=== PATIENT | female | born 1945 | race Caucasian/White ===

== ENCOUNTER 2017-01-12 18:39 | Emergency (ER) | payer MEDICARE ==
[2017-01-12 18:48] VITALS: TEMP 98.2
[2017-01-12] MEDS ORDERED: DIPH,PERTUS(ACELL)TETVAC-LF 0.5 ML VIAL IM ONE (19:21)
[2017-01-12] MEDS ORDERED: MORPHINE SULFATE 4 MG/ML SYRINGE IVP STA (19:47)
[2017-01-12 19:57] LABS: Basophils # (A) 0.1 k/uL (0-0.2); Basophils % (A) 1 %; CHCM 32.1; Eosinophils # (A) 0.1 k/uL (0-0.7); Eosinophils % (A) 1 %; HCT 42.1 % (34.0-46.0); HDW 2.57; HGB 13.9 gm/dL (11.4-16.0); Luc # (Auto) 0.26; Luc % (Auto) 3; Lymphocytes # (A) 1.7 k/uL (1.0-4.8); Lymphocytes % (A) 18 %; MCH 28.9 pg (25.0-35.0); MCV 87.5 fL (80.0-100.0); Mean Platelet Volume 6.6; Monocytes # (A) 0.7 k/uL (0-1.0); Monocytes % (A) 7 %; Neutrophils # (A) 6.7 k/uL (1.3-7.7); Neutrophils % (A) 71 %; RBC 4.81 m/uL (3.80-5.40); RDW 14.7 % (11.5-15.5); WBC 9.4 k/uL (3.8-10.6); WBC (Perox) 9.62
[2017-01-12 20:05] LABS: ALT 30 U/L (9-52); AST 31 U/L (14-36); Alcohol <10 mg/dL; Alkaline Phosphatase 121 U/L (38-126); Anion Gap 11 mmol/L; Blood Urea Nitrogen 11 mg/dL (7-17); Calcium 9.4 mg/dL (8.4-10.2); Carbon Dioxide 23 mmol/L (22-30); Chloride 107 mmol/L (98-107); Glucose 98 mg/dL (74-99); Non-African American GFR(MDRD) >60 (>60 ml/min/1.73 sqM); Potassium 4.3 mmol/L (3.5-5.1); Sodium 141 mmol/L (137-145); Total Bilirubin 0.4 mg/dL (0.2-1.3); Total Protein 8.1 g/dL (6.3-8.2)
--- NOTE | 2017-01-12 20:08 | XR ---
EXAMINATION TYPE: XR wrist limited LT DATE OF EXAM: 01/12/2017 COMPARISON: NONE HISTORY: Fall. Pain TECHNIQUE: 2 views FINDINGS: There is an impacted comminuted transverse fracture of the distal radius. There is 1 cm pos terior displacement of the major distal fragments. There is no dislocation. Distal ulna is intact. IMPRESSION: Comminuted impacted displaced transverse fracture distal radius. 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
--- NOTE | 2017-01-12 20:10 | XR ---
EXAMINATION TYPE: XR foot complete LT DATE OF EXAM: 01/12/2017 COMPARISON: NONE HISTORY: Pain TECHNIQUE: 3 views FINDINGS: There is old osteotomy of the first metatarsal head. There is narrowing and spurring at fir st MP joint. . There are moderate plantar and Achilles calcaneal spurs. There is suggestion of a nond isplaced transverse fractures of the head of the second and third proximal phalanges. IMPRESSION: There are probably fractures of the second and third toes as above.
[2017-01-12 20:12] LABS: Prothrombin Time 10.6 sec (9.0-12.0)
--- NOTE | 2017-01-12 20:52 | CT ---
EXAMINATION TYPE: CT brain wo con DATE OF EXAM: 01/12/2017 COMPARISON: NONE HISTORY: LACERATION TO LEFT SIKH AREA AFTER FALL INJURY TODAY. CT DLP: 954.8 mGycm Automated exposure control for dose reduction was used. FINDINGS: There is moderate patchy hypodensity in the periventricular white matter. There is no mass effect nor midline shift. There is a 3 x 4 cm wedge-shaped area of hypodensity in the right posterior frontal l obe. Calvarium is intact. There is no sign of intracranial hemorrhage. There is soft tissue swelling lateral to the left orbit. I see no sign of orbital fracture. IMPRESSION: SOFT TISSUE SWELLING LATERAL TO THE LEFT ORBIT. CEREBRAL ATROPHY AND CHRONIC SMALL VESSEL ISCHEMIA. O LD RIGHT POSTERIOR FRONTAL LOBE CORTICAL INFARCT. NO ACUTE INTRACRANIAL ABNORMALITY.
[2017-01-12 21:28] VITALS: RESP 18
[2017-01-12] MEDS ORDERED: MIDAZOLAM (PF) 1 MG/ML 5 ML VIAL IV STA (21:38)
[2017-01-12] MEDS ORDERED: MORPHINE SULFATE 10 MG/ML SYRINGE IVP STA (21:38)
[2017-01-12] MEDS ORDERED: TOPICAL SKIN ADHESIVE 1 EACH AMP TOPICAL ONE (21:43)
--- NOTE | 2017-01-12 22:35 | XR ---
EXAM: XR Left Wrist, 2 Views CLINICAL HISTORY: Reason: post reduction TECHNIQUE: Frontal and lateral views of the left wrist. COMPARISON: Wrist radiographs 01/12/2017 at 1947 hrs. FINDINGS: Bones/joints: Interval placement of fiberglass cast which obscures bony detail. Again demonstrated is comminuted distal radial fracture with mild radial displacement and mild dorsal angulation of the major distal fracture fragment. Interval improvement in bony alignment as compared to earlier examination of the same date. Degenerative changes about the first carpal-metacarpal joint. IMPRESSION: Status post placement of fiberglass cast. Distal radial fracture as described in body of report.
--- NOTE | 2017-01-12 22:57 | ED ---
General Adult HPI - General Chief complaint: Head Injury Stated complaint: slip and fall, left foot/hand injury, head injury Time Seen by Provider: 01/12/17 18:59 Source: patient, family, RN notes reviewed Mode of arrival: wheelchair Limitations: no limitations - History of Present Illness Initial comments: 72 -year-old female presenting status post fall. Patient was stepping over a garden pond and tripped falling and hitting her left eye, left wrist and left foot. She did have head, but denies LOC. She is complaining of pain in her left second and third toe as well as left breast. She has no significant past medical history, she is not currently on any medications. No blood thinners. Denies any chest pain or shortness of breath prior to the fall. - Related Data Home Medications Medication Instructions Recorded Confirmed Aspirin 325 mg PO DAILY 10/17/15 01/12/17 Cyanocobalamin (Vitamin B-12) 5,000 mcg PO DAILY 01/12/17 01/12/17 [Vitamin B12] Previous Rx's Medication Instructions Recorded HYDROcodone/APAP 5-325MG [[place] 1 tab PO Q6HR PRN #12 tab 01/12/17 5-325] Ibuprofen [Motrin] 600 mg PO Q8HR PRN #24 tab 01/12/17 Allergies Allergy/AdvReac Type Severity Reaction Status Date / Time No Known Allergies Allergy Verified 01/12/17 19:19 Review of Systems ROS Statement: Those systems with pertinent positive or pertinent negative responses have been documented in the HPI. ROS Other: All systems not noted in ROS Statement are negative. Past Medical History Past Medical History: Hypertension Additional Past Medical History / Comment(s): uterine prolapse with pain History of Any Multi-Drug Resistant Organisms: None Reported Past Surgical History: Hernia Repair, Orthopedic Surgery Additional Past Surgical History / Comment(s): heel spur,breast bx,breast reduction,lt inguinal hernia Past Anesthesia/Blood Transfusion Reactions: No Reported Reaction Additional Past Anesthesia/Blood Transfusion Reaction / Comment(s): unknown family hx Past Psychological History: No Psychological Hx Reported Smoking Status: Current every day smoker Past Alcohol Use History: Occasional Past Drug Use History: None Reported - Past Family History Mother Family Medical History: Cancer Additional Family Medical History / Comment(s): lung Father Family Medical History: Myocardial Infarction ([place]) General Exam Limitations: no limitations General appearance: alert, in no apparent distress Head exam: Present: normocephalic, other (Laceration to the lateral orbit just beneath the left eyebrow. No bony tenderness, extraocular motions are intact) Eye exam: Present: normal appearance, PERRL, EOMI ENT exam: Present: normal exam, mucous membranes moist Neck exam: Present: normal inspection, full ROM. Absent: tenderness Respiratory exam: Present: normal lung sounds bilaterally. Absent: respiratory distress Cardiovascular Exam: Present: regular rate, normal rhythm GI/Abdominal exam: Present: soft. Absent: distended, tenderness, guarding Extremities exam: Present: tenderness (Tenderness to the left second and third toes with overlying ecchymosis), normal capillary refill, other (Deformity left wrist, palpable radial pulse, cap refill less than 2 seconds.). Absent: pedal edema Neurological exam: Present: alert, oriented X3, CN II-XII intact. Absent: motor sensory deficit Psychiatric exam: Present: normal affect, normal mood Skin exam: Present: warm, dry Course Vital Signs 01/12/17 01/12/17 01/12/17 18:45 19:53 21:56 Temperature 98.2 F Pulse Rate 86 88 78 Respiratory 17 18 18 Rate Blood Pressure 235/102 182/89 190/87 O2 Sat by Pulse 97 95 99 Oximetry 01/12/17 01/12/17 21:57 22:02 Temperature Pulse Rate 80 84 Respiratory 18 18 Rate Blood Pressure 182/86 174/80 O2 Sat by Pulse 96 98 Oximetry EKG Findings - EKG Comments: EKG Findings:: EKG shows normal sinus rhythm, ventricular rate 76, VA interval 170, QS duration 70, QTC 45, no ST segment elevation or depression Procedures - Laceration Laceration #1 Consent Obtained: verbal consent Time Out Performed: Yes Indication: laceration Site: face Description: linear, clean Depth: simple, single layer Pre-repair: deep structures intact Size of Sutures: other (Combivent) Patient Tolerated Procedure: well - Orthopedic Fracture Reduction Fracture #1 Consent Obtained: verbal consent Time Out Performed: Yes Side: left Fracture Reduction Location: radius Analgesia: procedural sedation Technique: direct manipulation Post Reduction X-rays Demonstrate: acceptable reduction Post-Reduction Neuro Exam: intact Post-Reduction Vascular Exam: intact Splint Applied: Yes Patient Tolerated Procedure: well Medical Decision Making - Medical Decision Making 72-year-old female presents status post fall. No LOC. Head CT is negative for acute renal hemorrhage or acute findings. Laceration to the left lateral orbit is repaired with Dermabond. Patient does have fracture to the left second and third digit. She is given a postoperative shoe. Fracture to the left distal radius. Patient receives conscious sedation and fracture was reduced and she is placed in a splint. Patient tolerated the procedure well. She will follow- up with orthopedic surgery in the next several days. Diagnosis: Closed head injury, facial laceration, left distal radius fracture, left second and third fractured toe - Lab Data Result diagrams: 01/12/17 19:40 01/12/17 19:40 Lab Results 01/12/17 01/12/17 01/12/17 Range/Units 19:40 19:40 19:40 WBC 9.4 (3.8-10.6) k/uL RBC 4.81 (3.80-5.40) m/uL Hgb 13.9 (11.4-16.0) gm/dL Hct 42.1 (34.0-46.0) % MCV 87.5 (80.0-100.0) fL MCH 28.9 (25.0-35.0) pg MCHC 33.0 (31.0-37.0) g/dL RDW 14.7 (11.5-15.5) % Plt Count 268 (150-450) k/uL Neutrophils % 71 % Lymphocytes % 18 % Monocytes % 7 % Eosinophils % 1 % Basophils % 1 % Neutrophils # 6.7 (1.3-7.7) k/uL Lymphocytes # 1.7 (1.0-4.8) k/uL Monocytes # 0.7 (0-1.0) k/uL Eosinophils # 0.1 (0-0.7) k/uL Basophils # 0.1 (0-0.2) k/uL PT (9.0-12.0) sec INR (<1.2) APTT (22.0-30.0) sec Sodium 141 (137-145) mmol/L Potassium 4.3 (3.5-5.1) mmol/L Chloride 107 (98-107) mmol/L Carbon Dioxide 23 (22-30) mmol/L Anion Gap 11 mmol/L BUN 11 (7-17) mg/dL Creatinine 0.66 (0.52-1.04) mg/dL Est GFR (MDRD) Af Amer >60 (>60 ml/min/1.73 sqM) Est GFR (MDRD) Non-Af >60 (>60 ml/min/1.73 sqM) Glucose 98 (74-99) mg/dL Calcium 9.4 (8.4-10.2) mg/dL Total Bilirubin 0.4 (0.2-1.3) mg/dL AST 31 (14-36) U/L ALT 30 (9-52) U/L Alkaline Phosphatase 121 (38-126) U/L Total Protein 8.1 (6.3-8.2) g/dL Albumin 4.4 (3.5-5.0) g/dL Serum Alcohol <10 mg/dL Blood Type O Positive Blood Type Recheck No Antibody Screen NEGATIVE Spec Expiration Date 01/15/2017 - 233901/12/17 Range/Units 19:40 WBC (3.8-10.6) k/uL RBC (3.80-5.40) m/uL Hgb (11.4-16.0) gm/dL Hct (34.0-46.0) % MCV (80.0-100.0) fL MCH (25.0-35.0) pg MCHC (31.0-37.0) g/dL RDW (11.5-15.5) % Plt Count (150-450) k/uL Neutrophils % % Lymphocytes % % Monocytes % % Eosinophils % % Basophils % % Neutrophils # (1.3-7.7) k/uL Lymphocytes # (1.0-4.8) k/uL Monocytes # (0-1.0) k/uL Eosinophils # (0-0.7) k/uL Basophils # (0-0.2) k/uL PT 10.6 (9.0-12.0) sec INR 1.0 (<1.2) APTT 23.0 (22.0-30.0) sec Sodium (137-145) mmol/L Potassium (3.5-5.1) mmol/L Chloride (98-107) mmol/L Carbon Dioxide (22-30) mmol/L Anion Gap mmol/L BUN (7-17) mg/dL Creatinine (0.52-1.04) mg/dL Est GFR (MDRD) Af Amer (>60 ml/min/1.73 sqM) Est GFR (MDRD) Non-Af (>60 ml/min/1.73 sqM) Glucose (74-99) mg/dL Calcium (8.4-10.2) mg/dL Total Bilirubin (0.2-1.3) mg/dL AST (14-36) U/L ALT (9-52) U/L Alkaline Phosphatase (38-126) U/L Total Protein (6.3-8.2) g/dL Albumin (3.5-5.0) g/dL Serum Alcohol mg/dL Blood Type Blood Type Recheck Antibody Screen Spec Expiration Date Critical Care Time Critical Care Time: Yes Total Critical Care Time: 35 Disposition Clinical Impression: Closed head injury, Radius fracture Disposition: HOME SELF-CARE Condition: Good Instructions: Concussion (ED), Wrist Fracture in Adults (ED) Prescriptions: HYDROcodone/APAP 5-325MG [[place] 5-325] 1 tab PO Q6HR PRN #12 tab PRN Reason: Pain Ibuprofen [Motrin] 600 mg PO Q8HR PRN #24 tab PRN Reason: Pain Referrals: Tasneem Ann DO [Primary Care Provider] - 1-2 days Henrry Hess MD [STAFF PHYSICIAN] - 1-2 days
[2017-01-12] MEDS ORDERED: IBUPROFEN 600 MG STARTER PACK 4 TAB BTL PO STA (23:19)
[2017-01-12 23:32] VITALS: BP 150/74; PULSE 88
--- NOTE | 2017-01-19 05:53 | CDI ---
Dear Preston Freeman MD: Please do addendum start and stop time of conscious sedation. Thank you, Susan Sands, [employer]k Spreader. If you have any questions, please contact Civil Engineer Helper at [phone]. mtdD
== END 2017-01-12 23:30 | disposition home or self-care (01) ==
LOC: EC 18:39
DX: S52.502A Unspecified fracture of the lower end of left radius, initial encounter for closed fracture (principal); S01.112A Laceration without foreign body of left eyelid and periocular area, initial encounter; F17.200 Nicotine dependence, unspecified, uncomplicated; Z23 Encounter for immunization; Z79.82 Long term (current) use of aspirin; Z98.890 Other specified postprocedural states; Z79.899 Other long term (current) drug therapy; W01.198A Fall on same level from slipping, tripping and stumbling with subsequent striking against other object, initial encounter; Y92.89 Other specified places as the place of occurrence of the external cause
CPT/HCPCS: 25605 ×2; 12011 ×2; 90471 ×2; 96374 ×2; 99285 ×2; 99152 ×2; 99153 ×2; 36415; 93005; 86900; 86901; 80053; 85025; 85610; 85730; 86850; 80320; 73100; 73630; 70450; 90715; J2270 ×2; J2250

== ENCOUNTER → 2017-01-16 | Outpatient (CLI) | payer MEDICARE ==
--- NOTE | 2017-01-16 17:32 | XR ---
EXAMINATION TYPE: XR chest 2V DATE OF EXAM: 01/16/2017 COMPARISON: 10/23/2015 HISTORY: Cough TECHNIQUE: Frontal and lateral views of the chest are obtained. FINDINGS: There is no heart failure nor confluent pneumonic infiltrate. There is slight coarsening o f lung markings at the lung bases. There is no pleural effusion. There are no hilar masses. Bony thor ax is intact. IMPRESSION: Mild pulmonary fibrotic changes. No acute lung disease. No change.
== END | disposition home or self-care (01) ==
LOC: RADXRMAIN 16:32
PROVIDERS: ATTEND Orthopaedic Surgery
DX: Z01.812 Encounter for preprocedural laboratory examination (principal); E84.9 Cystic fibrosis, unspecified; R06.00 Dyspnea, unspecified
CPT/HCPCS: 71020

== ENCOUNTER 2017-01-20 12:39 | Day surgery (SDC) | payer MEDICARE ==
--- NOTE | 2017-01-19 15:21 | HP ---
CHIEF COMPLAINT: Left wrist pain. HISTORY OF PRESENT ILLNESS: The patient is a 72-year-old retired female who presents with left wrist pain after a fall on 01/12/2017. She fell in her back yard of her own home, landing on her left side. She had no loss of consciousness. She initially was seen in the emergency room and underwent provisional closed reduction of a left distal radius fracture. She has been in a splint since. She denies previous injury. PAST MEDICAL HISTORY: Negative. CURRENT MEDICATIONS: 1. Ibuprofen. 2. [place]. PAST SURGICAL HISTORY: Significant for hysterectomy. FAMILY HISTORY: Significant for cancer and heart disease. SOCIAL HISTORY: Significant for 1 pack per day tobacco use. A 16-point review of systems is otherwise reviewed and is noncontributory. On examination, the patient is approximately 5 foot 6 , 159 pounds of mesomorphic habitus. HEENT exam is nonfocal. Neck is supple. She is nontender about the left shoulder and elbow. On examination of her left wrist she has large swelling. She has mild ecchymosis volarly. She is tender over the distal radius. She has moderate digital stiffness, light touch is grossly intact through the left digits. X-rays to include multiple views of the left wrist brought in with the patient show an intra-articular distal radius fracture with significant angulation and displacement. IMPRESSION: Displaced left intra-articular distal radius fracture. RECOMMENDATIONS: I talked to the patient length regarding her treatment options. At this point, I would recommend proceeding with surgery. We will plan to proceed with open reduction and internal fixation of her left distal radius fracture. We will likely keep the patient for a 23-hour hold postoperative. Risks and benefits are discussed at length in layman's terms. TRES
[~2017-01-20 12:39] MED LIST: DEXAMETHASONE SOD PHOSPHATE 10 MG/ML 1 ML VIAL IV ONE; FAMOTIDINE 20 MG/2 ML VIAL IV PRN; HYDROmorphone 1 MG/ML 1 ML SYRINGE IVP PRN; LIDOCAINE 1% 20 ML VIAL (10MG/ML) FOR IV START INTRADERMA PRN; ONDANSETRON 4 MG/2 ML VIAL IVP PRN; ceFAZolin 1,000 MG in DEXTROSE/WATER 1 50ML.BAG IV ONE
[2017-01-20] MEDS: LACTATED RINGERS 1,000 ML IV SCH (13:52)
[2017-01-20] MEDS ORDERED: SUCCINYLCHOLINE CHLORIDE 100 MG/5 ML SYR IV ONE (15:00)
[2017-01-20] MEDS ORDERED: fentaNYL (PF) 50 MCG/ML 2 ML AMP ONE (15:00)
[2017-01-20] MEDS ORDERED: ePHEDrine 50 MG/ML 1 ML AMP ONE (15:00)
[2017-01-20] MEDS ORDERED: PROPOFOL 10 MG/ML 20 ML VIAL IV ONE (15:00)
[2017-01-20] MEDS ORDERED: MIDAZOLAM 2 MG/2 ML VIAL ONE (15:00)
[2017-01-20] MEDS ORDERED: LIDOCAINE 1% INJ 10MG/ML (20 ML MDV) ONE (15:00)
[2017-01-20] MEDS ORDERED: ceFAZolin 1,000 MG in SODIUM CHLORIDE 0.9% 1,000 ML IRRIGATION ONE (15:29)
[2017-01-20] MEDS ORDERED: LACTATED RINGERS 1,000 ML IV ONE (16:28)
[2017-01-20] MEDS ORDERED: HYDROcodone/APAP 5-325MG 1 EACH TAB PO PRN ×2 (16:47)
[2017-01-20] MEDS ORDERED: HYDROmorphone 1 MG/ML 1 ML SYRINGE IVP PRN (16:47)
--- NOTE | 2017-01-20 16:50 | P.OP ---
Date of Procedure: 01/20/17 Preoperative Diagnosis: Displaced left intra-articular distal radius fracture Postoperative Diagnosis: Same Procedure(s) Performed: Open reduction and internal fixation left intra-articular distal radius fracture Implants: Rajinder 3-hole standard with volar distal radius plate Anesthesia: HUMA Surgeon: Henrry Hess Bank Reconciliator #1: Evans Rene Estimated Blood Loss (ml): 5 Pathology: none sent Condition: stable Disposition: PACU Indications for Procedure: The patient's a 72-year-old female who presents after falling injuring her left wrist recently. Upon evaluation she was noted have a significantly displaced and angulated intra-articular left distal radius fracture. A discussion of the risks and benefits of operative intervention was made with patient. She opted to proceed. Operative options were discussed. We will plan to proceed with open reduction and internal fixation. Specific risks of this procedure to include infection, neurovascular injury, development of blood clots, development of nonunion, development of malunion, and possible need for subsequent procedures was discussed. Informed consent was obtained. Operative Findings: As below Description of Procedure: The patient was brought to the operating room, and after induction of general anesthesia the left upper extremity was prepped and draped in normal fashion. The tourniquet was inflated to 250 mmHg. A 5 cm incision was then made centered over the flexor carpi radialis extending to the volar distal wrist crease. Skin was incised sharply. Subcu tissues were divided bluntly. Electrocautery was used for hemostasis. The flexor carpi radialis sheath was opened. The tendon was gently retracted ulnarly and the radial artery radially. The underlying fascia was then opened. The contents of the carpal canal were bluntly dissected ulnarly. The pronator quadratus was elevated off the radial styloid in the fracture site cleaned of clot and debris. It was then provisionally reduced with longitudinal traction and manipulation. A volar 3-hole plate of standard with was then attached to the distal radial shaft with a K wire. Position was verified with fluoroscopy on the PA, and lateral views. A 2.4 mm cortical screw of the appropriate length was placed in the sliding hole proximally. With the fracture held reduced, the proximal and distal rows were filled with smooth pegs the appropriate length. Again this was done with the aid of fluoroscopy. The remaining cortical screws were placed proximally. Final fluoroscopic views to include AP lateral and PA views showed adequate reduction of fracture in the articular surface as well as placement of the implant. The wound was irrigated with normal saline. The subcutaneous tissues reapproximated interrupted 3-0 Vicryl sutures. The skin was reapproximated with subcuticular 4-0 Prolene suture. Steri-Strips were applied. A sterile dressing was applied in addition to a volar splint. The tourniquet was deflated with approximately 60 minutes total tourniquet time. The patient was awoken from general anesthesia and transferred to recovery room in good condition. Blood loss was estimated 5 mL. No complications were incurred. Sponge and needle counts were correct at the end the case.
--- NOTE | 2017-01-20 16:51 | FL ---
Fluoroscopy History: ORIF LT DISTAL RADIUS FRACUTURE. 1 MIN 9 SECS FL TIME. ORIF LT DISTAL RADIUS FRACUTURE. 2 IMAGES SCANNED
[2017-01-20] MEDS ORDERED: LABETALOL 5 MG/ML VIAL MDV IVP ONE ×2 (16:59→17:15)
[2017-01-20] MEDS ORDERED: HYDROmorphone 1 MG/ML 1 ML SYRINGE IVP ONE ×7 (17:02→17:29)
[2017-01-20] MEDS ORDERED: MIDAZOLAM 2 MG/2 ML VIAL IVP ONE (17:28)
[2017-01-20 18:06] VITALS: BMI 25.4
[2017-01-20] MEDS: HYDROmorphone 1 MG/ML 1 ML SYRINGE IVP PRN (21:00)
[2017-01-20] MEDS: ceFAZolin 2 GM in SODIUM CHLORIDE 0.9% 100 ML IVPB SCH (23:58)
[2017-01-21] MEDS: HYDROmorphone 1 MG/ML 1 ML SYRINGE IVP PRN ×2 (00:13→03:43)
[2017-01-21] MEDS: LACTATED RINGERS 1,000 ML IV SCH (06:08)
[2017-01-21] MEDS: ceFAZolin 2 GM in SODIUM CHLORIDE 0.9% 100 ML IVPB SCH (07:58)
[2017-01-21 08:11] VITALS: BP 150/72; PULSE 92; RESP 18; TEMP 98.1
--- NOTE | 2017-01-21 09:35 | P.PN ---
Subjective Principal diagnosis: Status post ORIF left distal radius fracture Patient is seen today resting in her hospital bed, she appears comfortable. Her pain is well-controlled. She denies any chest pain, shortness of breath, fever chills. Objective - Vital Signs Vital signs: Vital Signs Temp 98.1 F 01/21/17 08:00 Pulse 92 01/21/17 08:00 Resp 18 01/21/17 08:00 BP 150/72 01/21/17 08:00 Pulse Ox 96 01/21/17 08:00 Intake & Output 01/20/17 01/21/17 01/21/17 18:59 06:59 18:59 Intake Total 1151 420 Output Total 5 Balance 1146 420 Weight 71.668 kg Intake: IV 1151 Oral 420 Output: Estimated Blood Loss 5 Other: Voiding Method Toilet # Voids 1 2 - Exam Left upper extremity: Splint is in good position and condition. Minimal swelling and bruising noted in the fingers. She is able to wiggle all the fingers appropriately. Her sensation of light touch both proximal and distal to the splint are intact. Cap refills less than 3 seconds. Assessment and Plan Plan: Assessment: 1. Postop day 1 status post ORIF left distal radius fracture Plan: Patient is doing very well, We Will Discharge Home Today [place] 5 Mg/325 Mg As Needed for Discomfort Discussed Proper Cast Instructions, Including Both Showering and Icing and Elevating Techniques Patient Advised to Follow-Up at [facility] in 2 Weeks Time with Patient: Less than 30
--- NOTE | 2017-01-21 09:38 | P.DS ---
Providers Date of admission: 01/20/2017 Expected date of discharge: 01/21/17 Attending physician: Henrry Hess Primary care physician: Tasneem Ann Hospital Course: Date of admission: 01/20/2017 Date of discharge: 01/21/2017 Admission diagnosis: Status post ORIF left distal radius fracture Discharge diagnosis: Same Attending physician: Dr. Hess Surgical procedures: Open reduction internal fixation left distal radius fracture Brief history: Patient is a 72-year-old female who was initially evaluated in the outpatient setting for a displaced and angulated left distal radius intra- articular fracture. It was determined that she would need surgical intervention for this problem. She was scheduled for surgery on 01/20/2017. Hospital course: Details of patient's surgery can be found in operative report. Patient tolerated the procedure well and was subsequently transported to orthopedic floor. Patient's orthopeidc and medical care was provided daily. Patient was noted to have a relatively uneventful postoperative course. Patient reported satisfactory pain control with oral pain medications by postoperative day 0. Patient showed satisfactory progress with physical therapy. Patient moved steadily through the program and had no difficulty meeting the goals by postoperative day 1. Given patient's otherwise satisfactory course and having met physical therapy goals, plan is to discharge patient home on postoperative day 1. Discharge condition/disposition: Patient will be discharged home in stable condition. Discharge medications: Instructions are given on resumption of patient's normal daily medications per primary care recommendation, in addition patient will be prescribed [place] 5 mg/325 mg. Discharge instructions: 1. Wound care and infection precautions, keep incision dry and covered while showering, no lotions, creams, moisturizers. No soaking, tubs, pools, hottubs. Do not scrub over the incision. 2. Avoid strenuous activity left upper extremity 3. Ice and elevate when necessary. Do not exceed 20 minutes per hour with ice pack. 4. Pain medication has potential to cause constipation. Increase oral fluid and fiber intake. Contact primary care provider if you have not had a bowel movement within 48 hours after discharge 5. Follow up in office at 2 weeks postop with Brandon Rene PA-C 6. Contact [facility] with any questions, . Procedures: Open reduction internal fixation left distal radius fracture Patient Condition at Discharge: Good Plan - Discharge Summary New Discharge Prescriptions: New Hydrocodone/Acetaminophen [[place] 5-325] 1 each PO Q6HR PRN #30 tab PRN Reason: Pain No Action Aspirin 325 mg PO DAILY Cyanocobalamin (Vitamin B-12) [Vitamin B12] 5,000 mcg PO DAILY Ibuprofen [Motrin] 600 mg PO Q8HR PRN #24 tab PRN Reason: Pain Acetaminophen [Tylenol Extra Strength] 500 mg PO Q6H PRN PRN Reason: Pain Discharge Medication List Aspirin 325 mg PO DAILY 10/17/15 [History] Cyanocobalamin (Vitamin B-12) [Vitamin B12] 5,000 mcg PO DAILY 01/12/17 [History ] Ibuprofen [Motrin] 600 mg PO Q8HR PRN #24 tab 01/12/17 [Rx] Acetaminophen [Tylenol Extra Strength] 500 mg PO Q6H PRN 01/19/17 [History] Hydrocodone/Acetaminophen [[place] 5-325] 1 each PO Q6HR PRN #30 tab 01/21/17 [Rx] Follow up Appointment(s)/Referral(s): Evans Rene PAC [PHYSICIAN FISHING ROD MECHANIC] - 2 Weeks Activity/Diet/Wound Care/Special Instructions: Orthopedic discharge instructions: 1. Keep cast clean and dry, keep covered while showering 2. Ice and elevate The 3. Avoid strenuous activity 4. Follow-up at [facility] in 2 weeks Discharge Disposition: HOME SELF-CARE
== END 2017-01-21 11:53 | disposition home or self-care (01) ==
LOC: OR 12:39 → 3OBS 14:39 → OR 01-21 11:53
PROVIDERS: ATTEND Orthopaedic Surgery
DX: S52.572A Other intraarticular fracture of lower end of left radius, initial encounter for closed fracture (principal); W19.XXXA Unspecified fall, initial encounter; Y92.007 Garden or yard of unspecified non-institutional (private) residence as the place of occurrence of the external cause; I10 Essential (primary) hypertension; Z72.0 Tobacco use; Z79.82 Long term (current) use of aspirin; Z79.1 Long term (current) use of non-steroidal anti-inflammatories (NSAID)
CPT/HCPCS: 73100; 25608; C1713; J2250; J1100; J0690 ×4; J2405; J2001; J3010; J1170 ×2; J0330; J2704

== ENCOUNTER 2017-11-06 17:40 | Emergency (ER) | payer MEDICARE ==
--- NOTE | 2017-11-06 18:18 | ED ---
Altered Mental Status HPI - General Chief Complaint: Altered Mental Status Stated Complaint: Memory loss Time Seen by Provider: 11/06/17 18:13 Source: patient, family Mode of arrival: wheelchair Limitations: altered mental status - History of Present Illness Initial Comments: Patient presents with altered mental status. Apparently patient has been having some altered mental status symptoms over the last few months, however today comes have gotten much worse. is presenting with her , who provides most of the information. He does not believe she has had any injuries. She has not complained of any chest pain or other areas of pain. He states that she is getting lost while driving, and he needs to drive her around now. She is acting differently. She is tolerating oral intake. - Related Data Home Medications Medication Instructions Recorded Confirmed Aspirin 325 mg PO DAILY 10/17/15 11/06/17 Multivitamins, Thera [Multivitamin 1 tab PO DAILY 11/06/17 11/06/17 (formulary)] Allergies Allergy/AdvReac Type Severity Reaction Status Date / Time No Known Allergies Allergy Verified 11/06/17 18:18 Review of Systems ROS Statement: Those systems with pertinent positive or pertinent negative responses have been documented in the HPI. ROS Other: All systems not noted in ROS Statement are negative. Past Medical History Past Medical History: Hypertension Additional Past Medical History / Comment(s): CURRENT: FELL; FX LEFT WRIST ( HALF CAST), BROKE 2ND & 3RD TOES OF LEFT FOOT (BOOT), AND CONTUSION OF LEFT EYE. HX: uterine prolapse History of Any Multi-Drug Resistant Organisms: None Reported Past Surgical History: Hernia Repair, Hysterectomy, Orthopedic Surgery Additional Past Surgical History / Comment(s): VAGINAL HYSTERECTOMY WITH A & P REPAIR (10/23/15). BILATERAL CATARACTS WITH IMPLANTS. Heel spur. Breast bx, breast reduction. Lt inguinal hernia Past Anesthesia/Blood Transfusion Reactions: No Reported Reaction Additional Past Anesthesia/Blood Transfusion Reaction / Comment(s): unknown family hx Past Psychological History: No Psychological Hx Reported Smoking Status: Current every day smoker Past Alcohol Use History: Occasional Past Drug Use History: None Reported - Past Family History Mother Family Medical History: Cancer Additional Family Medical History / Comment(s): lung Father Family Medical History: Myocardial Infarction ([place]) General Exam Limitations: altered mental status General appearance: alert, in no apparent distress Head exam: Present: atraumatic, normocephalic, normal inspection Eye exam: Present: normal appearance, PERRL, EOMI. Absent: scleral icterus, conjunctival injection, periorbital swelling ENT exam: Present: normal exam, mucous membranes moist Neck exam: Present: normal inspection. Absent: tenderness, meningismus, lymphadenopathy Respiratory exam: Present: normal lung sounds bilaterally. Absent: respiratory distress, wheezes, rales, rhonchi, stridor Cardiovascular Exam: Present: regular rate, normal rhythm, normal heart sounds. Absent: systolic murmur, diastolic murmur, rubs, gallop, clicks GI/Abdominal exam: Present: soft, normal bowel sounds. Absent: distended, tenderness, guarding, rebound, rigid Extremities exam: Present: normal inspection, full ROM, normal capillary refill. Absent: tenderness, pedal edema, joint swelling, calf tenderness Back exam: Present: normal inspection Neurological exam: Present: alert, oriented X3, CN II-XII intact Psychiatric exam: Present: normal affect, normal mood Skin exam: Present: warm, dry, intact, normal color. Absent: rash Course Vital Signs 11/06/17 17:52 Temperature 98.1 F Pulse Rate 85 Respiratory 18 Rate Blood Pressure 196/74 O2 Sat by Pulse 96 Oximetry Medical Decision Making - Medical Decision Making Patient presents with memory changes over several months. She is alert and oriented 4, capable of making her own medical decisions. I do not appreciate any neurological deficits on her examination and her workup is entirely negative for any evidence of any acute emergency condition. I reevaluated the patient. I offered her admission the hospital, but she does not want to stay. There is no indication or requirement to keep her in the hospital. She will follow-up with her doctor, and I instructed her to return to the emerge department he merely for any new or worsening problems. - Lab Data Result diagrams: 11/06/17 18:40 11/06/17 18:40 Lab Results 11/06/17 11/06/17 11/06/17 Range/Units 18:40 18:40 18:40 WBC 7.8 (3.8-10.6) k/uL RBC 4.86 (3.80-5.40) m/uL Hgb 13.4 (11.4-16.0) gm/dL Hct 42.5 (34.0-46.0) % MCV 87.5 (80.0-100.0) fL MCH 27.6 (25.0-35.0) pg MCHC 31.5 (31.0-37.0) g/dL RDW 14.4 (11.5-15.5) % Plt Count 288 (150-450) k/uL Neutrophils % 58 % Lymphocytes % 30 % Monocytes % 6 % Eosinophils % 2 % Basophils % 1 % Neutrophils # 4.5 (1.3-7.7) k/uL Lymphocytes # 2.3 (1.0-4.8) k/uL Monocytes # 0.5 (0-1.0) k/uL Eosinophils # 0.2 (0-0.7) k/uL Basophils # 0.1 (0-0.2) k/uL PT (9.0-12.0) sec INR (<1.2) APTT (22.0-30.0) sec Sodium 145 (137-145) mmol/L Potassium 4.2 (3.5-5.1) mmol/L Chloride 106 (98-107) mmol/L Carbon Dioxide 26 (22-30) mmol/L Anion Gap 13 mmol/L BUN 10 (7-17) mg/dL Creatinine 0.60 (0.52-1.04) mg/dL Est GFR (CKD-EPI)AfAm >90 (>60 ml/min/1.73 sqM) Est GFR (CKD-EPI)NonAf >90 (>60 ml/min/1.73 sqM) Glucose 101 H (74-99) mg/dL Calcium 9.7 (8.4-10.2) mg/dL Total Bilirubin 0.2 (0.2-1.3) mg/dL AST 24 (14-36) U/L ALT 28 (9-52) U/L Alkaline Phosphatase 88 (38-126) U/L Ammonia 17 (<30) umol/L Troponin I (0.000-0.034) ng/mL Total Protein 7.7 (6.3-8.2) g/dL Albumin 4.4 (3.5-5.0) g/dL 11/06/17 11/06/17 Range/Units 18:40 18:40 WBC (3.8-10.6) k/uL RBC (3.80-5.40) m/uL Hgb (11.4-16.0) gm/dL Hct (34.0-46.0) % MCV (80.0-100.0) fL MCH (25.0-35.0) pg MCHC (31.0-37.0) g/dL RDW (11.5-15.5) % Plt Count (150-450) k/uL Neutrophils % % Lymphocytes % % Monocytes % % Eosinophils % % Basophils % % Neutrophils # (1.3-7.7) k/uL Lymphocytes # (1.0-4.8) k/uL Monocytes # (0-1.0) k/uL Eosinophils # (0-0.7) k/uL Basophils # (0-0.2) k/uL PT 10.5 (9.0-12.0) sec INR 1.1 (<1.2) APTT 23.0 (22.0-30.0) sec Sodium (137-145) mmol/L Potassium (3.5-5.1) mmol/L Chloride (98-107) mmol/L Carbon Dioxide (22-30) mmol/L Anion Gap mmol/L BUN (7-17) mg/dL Creatinine (0.52-1.04) mg/dL Est GFR (CKD-EPI)AfAm (>60 ml/min/1.73 sqM) Est GFR (CKD-EPI)NonAf (>60 ml/min/1.73 sqM) Glucose (74-99) mg/dL Calcium (8.4-10.2) mg/dL Total Bilirubin (0.2-1.3) mg/dL AST (14-36) U/L ALT (9-52) U/L Alkaline Phosphatase (38-126) U/L Ammonia (<30) umol/L Troponin I <0.012 (0.000-0.034) ng/mL Total Protein (6.3-8.2) g/dL Albumin (3.5-5.0) g/dL 11/06/17 18:46 Twelve-lead EKG shows ventricular rate 79 bpm, normal VA interval and QRS complexes, no ST elevation or depression, interpreted by me as normal sinus rhythm. Disposition Clinical Impression: Dementia Disposition: HOME SELF-CARE Condition: Good Instructions: Altered Mental Status (ED) Is patient prescribed a controlled substance at d/c from ED?: No Referrals: Tasneem Ann DO [Primary Care Provider] - 1-2 days Ho Alvares MD [STAFF PHYSICIAN] - 1-2 days
[2017-11-06 18:57] LABS: Basophils # (A) 0.1 k/uL (0-0.2); Basophils % (A) 1 %; Eosinophils # (A) 0.2 k/uL (0-0.7); Eosinophils % (A) 2 %; HCT 42.5 % (34.0-46.0); HGB 13.4 gm/dL (11.4-16.0); Lymphocytes # (A) 2.3 k/uL (1.0-4.8); Lymphocytes % (A) 30 %; MCH 27.6 pg (25.0-35.0); MCHC 31.5 g/dL (31.0-37.0); MCV 87.5 fL (80.0-100.0); Mean Platelet Volume 7.2; Monocytes # (A) 0.5 k/uL (0-1.0); Monocytes % (A) 6 %; Neutrophils # (A) 4.5 k/uL (1.3-7.7); Neutrophils % (A) 58 %; Platelet Count 288 k/uL (150-450); RBC 4.86 m/uL (3.80-5.40); RDW 14.4 % (11.5-15.5); WBC 7.8 k/uL (3.8-10.6)
[2017-11-06 19:00] LABS: ALT 28 U/L (9-52); AST 24 U/L (14-36); Albumin 4.4 g/dL (3.5-5.0); Alkaline Phosphatase 88 U/L (38-126); Anion Gap 13 mmol/L; Blood Urea Nitrogen 10 mg/dL (7-17); Calcium 9.7 mg/dL (8.4-10.2); Carbon Dioxide 26 mmol/L (22-30); Chloride 106 mmol/L (98-107); Glucose 101 mg/dL (74-99); Potassium 4.2 mmol/L (3.5-5.1); Sodium 145 mmol/L (137-145); Total Bilirubin 0.2 mg/dL (0.2-1.3); Total Protein 7.7 g/dL (6.3-8.2)
[2017-11-06 19:02] LABS: INR 1.1 (<1.2); Prothrombin Time 10.5 sec (9.0-12.0)
--- NOTE | 2017-11-06 19:18 | CT ---
EXAMINATION TYPE: CT brain wo con DATE OF EXAM: 11/06/2017 COMPARISON: 01/12/2017 HISTORY: Memory loss and confusion CT DLP: 995.5 mGycm Automated exposure control for dose reduction was used. FINDINGS: There is patchy hypodensity in the periventricular white matter. There is mild cerebral cortical atro phy. There is no mass effect nor midline shift. There is no sign of intracranial hemorrhage. The calv arium is intact. IMPRESSION: MILD ATROPHY. CHANGES OF CHRONIC SMALL VESSEL ISCHEMIA. NO ACUTE INTRACRANIAL ABNORMALITY. NO CHANGE.
--- NOTE | 2017-11-06 19:19 | XR ---
EXAMINATION TYPE: XR chest 2V DATE OF EXAM: 11/06/2017 COMPARISON: 01/16/2017 HISTORY: Altered mental status TECHNIQUE: Frontal and lateral views of the chest are obtained. FINDINGS: There is no heart failure nor confluent pneumonic infiltrate. Thoracic aorta is atheromato us. Costophrenic angles are clear. There are chest leads. There is mild thoracic dextroscoliosis. IMPRESSION: No active cardiopulmonary disease. No change.
[2017-11-06 20:10] VITALS: BP 180/85; PULSE 77; RESP 17; TEMP 98.3
== END 2017-11-06 20:10 | disposition home or self-care (01) ==
LOC: EC 17:40
DX: F03.90 Unspecified dementia, unspecified severity, without behavioral disturbance, psychotic disturbance, mood disturbance, and anxiety (principal); F17.200 Nicotine dependence, unspecified, uncomplicated; Z79.82 Long term (current) use of aspirin
CPT/HCPCS: 36415; 70450; 71046; 80053; 82140; 84484; 85025; 85610; 85730; 93005; 99285

== ENCOUNTER → 2018-07-30 | Outpatient (CLI) | payer MEDICARE ==
--- NOTE | 2018-07-30 17:01 | BD ---
EXAMINATION TYPE: Axial Bone Density DATE OF EXAM: 07/30/2018 COMPARISON: NONE CLINICAL HISTORY: 73-year-old female postmenopausal screening Height: 62.7 IN Weight: 163 LBS FRAX RISK QUESTIONS: History of Fracture in Adulthood: YES LEFT WRIST AGE 71 Secondary Osteoporosis: Current Tobacco Use: YES RISK FACTORS HISTORY OF: History of Wrist Fracture: YES LEFT WRIST When: AGE 71 Surgery Wrist (left): YES When: AGE 71 Active: YES Postmenopausal woman: AGE 53 Take estrogen and/or progesterone medications: NOT NOW How long: TOOK FOR 10 YEARS Lost more than 2 inches in height since high school: YES 3" MEDICATIONS: Additional Medications: CALCIUM, VIT D, VIT C, VIT E, VIT B, FISH OIL, GARLIC OIL, EXAM MEASUREMENTS: Bone mineral densitometry was performed using the Saber Hacer System. Bone mineral density as measured about the Lumbar spine is: ----- L1-L4(G/cm2): 1.192 T Score Values are as follows: ----- L2: -0.1 ----- L3: -0.1 ----- L4: 0.5 ----- L1-L4: 0.1 Bone mineral density BASELINE Bone mineral density about the R hip (g/cm2): 0.911 Bone mineral density about the L hip (g/cm2): 0.916 T Score values are as follows: -----R Neck: -0.9 -----L Neck: -0.9 -----R Total: -0.2 -----L Total: -0.1 Bone mineral density BASELINE IMPRESSION: Normal (Values between +1 and -1 indicate normal bone mass). Note that measurements border on osteope dustin at the hips. Repeat study in 5 years or sooner if there is some new clinical indication. NOTE: T-SCORE=SD OF THE YOUNG ADULT MEAN.
--- NOTE | 2018-08-03 07:00 | MM ---
Reason for exam: screening (asymptomatic). Last mammogram was performed 3 years and 2 months ago. History: Patient is postmenopausal. Reductions of both breasts, 2001. Took estrogen for 10 years beginning at age 53. Physical Findings: A clinical breast exam by your physician is recommended on an annual basis and results should be correlated with mammographic findings. MG 3D Screening Mammo W/Cad Bilateral CC and MLO view(s) were taken. Prior study comparison: June 02, 2015, bilateral MG 3d screening mammo w/cad. September 18, 2008, bilateral diagnostic digital mammog. The breast tissue is heterogeneously dense. This may lower the sensitivity of mammography. Benign appearing bilateral calcifications. No suspicious abnormality. No significant changes when compared with prior studies. ASSESSMENT: Benign, BI-RAD 2 RECOMMENDATION: Routine screening mammogram of both breasts in 1 year.
== END | disposition home or self-care (01) ==
LOC: RADBDWWP 12:40
PROVIDERS: ATTEND Family Medicine
DX: Z12.31 Encounter for screening mammogram for malignant neoplasm of breast (principal); M85.852 Other specified disorders of bone density and structure, left thigh; M85.851 Other specified disorders of bone density and structure, right thigh; Z78.0 Asymptomatic menopausal state
CPT/HCPCS: 77063; 77067; 77080

== ENCOUNTER → 2019-04-22 | Outpatient (CLI) | payer MEDICARE ==
--- NOTE | 2019-04-22 15:50 | CT ---
EXAMINATION TYPE: CT brain wo/w con DATE OF EXAM: 04/22/2019 COMPARISON: 11/06/2017 HISTORY: Vertigo and memory changes. Patient poor historian. CT DLP: 2019.3mGycm CONTRAST: CT scan of the head is performed without and with IV Contrast, patient injected with 100ml mL of Isov ue 300. Unenhanced followed by contrast enhanced CT of the brain is submitted for evaluation. The ventricles are midline. Mild generalized atrophic change are redemonstrated. Periventricular white matter ische dale demyelination. Arachnoid cyst right frontal region now measuring 3.2 x 1.9 cm unchanged from prio r study. No evidence for midline shift. There is no evidence for intracranial hemorrhage or extra-axi al collection. No mass effects are identified. Visualized bony calvarium is intact. Contrast is ad ministered and no enhancing lesions are detected. No pathologic enhancement is identified. If sympt oms persist consider MRI. IMPRESSION: 1. Age related atrophic and chronic small vessel ischemic change. 2. Right frontal arachnoid cyst is unchanged.
== END | disposition home or self-care (01) ==
LOC: RADCTMAIN 15:10
PROVIDERS: ATTEND Family Medicine
DX: G93.0 Cerebral cysts (principal); G31.1 Senile degeneration of brain, not elsewhere classified; I67.82 Cerebral ischemia
CPT/HCPCS: 70470; Q9967

== ENCOUNTER → 2019-05-06 | Outpatient (CLI) | payer MEDICARE ==
--- NOTE | 2019-05-07 09:35 | US ---
EXAMINATION TYPE: US carotid duplex BILAT DATE OF EXAM: 05/06/2019 COMPARISON: NONE CLINICAL HISTORY: G31.84 Mild cognitive impairment. Patient states no other symptoms. EXAM MEASUREMENTS: RIGHT: Peak Systolic Velocity (PSV) cm/sec ----- Right CCA: 61.3 ----- Right ICA: 77.6 ----- Right ECA: 143.9 ICA/CCA ratio: 1.3 RIGHT: End Diastole cm/sec ----- Right CCA: 16.8 ----- Right ICA: 21.5 ----- Right ECA: 19.2 LEFT: Peak Systolic Velocity (PSV) cm/sec ----- Left CCA: 60.1 ----- Left ICA: 76.3 ----- Left ECA: 81.2 ICA/CCA ratio: 1.3 LEFT: End Diastole cm/sec ----- Left CCA: 18.8 ----- Left ICA: 24.2 ----- Left ECA: 14.3 VERTEBRALS (direction of flow): Right Vertebral: Antegrade Left Vertebral: Antegrade Rhythm: Normal Bilateral intimal thickening, large amount of plaque bilateral bulb, elevated velocity: right proxima l ECA, no significant stenosis. IMPRESSION: Bilateral intimal thickening, large amount of plaque bilateral bulb, elevated velocity: r ight proximal ECA, no significant stenosis. Criteria for Assigning % of Stenosis / Diameter reduction (Estimation based on the indirect measurements of the internal carotid artery velocities (ICA PSV). 1. Normal (no stenosis)=ICA PSV < 125 cm/s: ratio < 2.0: ICA EDV<40 cm/s. 2. Less than 50% stenosis=ICA PSV < 125 cm/s: ratio < 2.0: ICA EDV<40 cm/s. 3. 50 to 69% stenosis=ICA PSV of 125 to 230 cm/s: ration 2.0 ? 4.0: ICA EDV 40-100 cm/s. 4. Greater than 70% stenosis to near occlusion= ICA PSV > 230 cm/s: ratio > 4.0: ICA EDV > 100 cm/s. 5. Near occlusion= ICA PSV velocities may be low or undetectable: variable ratio and ICA EDV. 6. Total occlusion=unable to detect flow.
== END | disposition home or self-care (01) ==
LOC: RADUSWWP 15:35
PROVIDERS: ATTEND Psychiatry & Neurology Neurology
DX: I65.23 Occlusion and stenosis of bilateral carotid arteries (principal); G31.84 Mild cognitive impairment of uncertain or unknown etiology
CPT/HCPCS: 93880

== ENCOUNTER 2022-06-30 13:56 | Emergency (ER) | payer MEDICARE ==
--- NOTE | 2022-06-30 14:13 | ED ---
General Adult HPI - General Source: patient, RN notes reviewed Mode of arrival: ambulatory Limitations: no limitations <Raymon Pennington - Last Filed: 06/30/22 14:12> - General Source: patient, RN notes reviewed Mode of arrival: ambulatory Limitations: no limitations <Pippa Alvarez - Last Filed: 07/04/22 18:43> - General Stated complaint: L leg sore Time Seen by Provider: 06/30/22 14:12 - History of Present Illness Initial comments: This a 77-year-old female presents emergency Department chief complaint left leg pain and swelling. Patient states that she's been having some ongoing issues. But states he knows red ronda on the back of her leg. This seems to be separate of her leg pain and swelling. She has no history DVT but he was concerned about possible DVT. Patient appears to have a bite ronda on her left thigh region. Patient denies fevers or chills no trauma no other complaints. (Raymon Pennington) 77-year-old female presents to the emergency Department with complaints of pain and swelling to the left lower extremity. States this is in an ongoing issue but became more concerned when she noticed a reddened area in the posterior aspect of the left knee. Reports concern for possible DVT. Has been able to ambulate without difficulty using her cane. Denies fever, chills, headache, chest pain, shortness of breath, injury, or trauma. (Pippa Alvarez) - Related Data Home Medications Medication Instructions Recorded Confirmed Aspirin 325 mg PO DAILY 10/17/15 11/06/17 Multivitamins, Thera [Multivitamin 1 tab PO DAILY 11/06/17 11/06/17 (formulary)] Allergies Allergy/AdvReac Type Severity Reaction Status Date / Time No Known Allergies Allergy Verified 06/30/22 14:19 Review of Systems ROS Other: All systems not noted in ROS Statement are negative. <Raymon Pennington - Last Filed: 06/30/22 14:12> ROS Other: All systems not noted in ROS Statement are negative. <Pippa Alvarez - Last Filed: 07/04/22 18:43> ROS Statement: Those systems with pertinent positive or pertinent negative responses have been documented in the HPI. Past Medical History Past Medical History: Hypertension Additional Past Medical History / Comment(s): CURRENT: FELL; FX LEFT WRIST (HALF CAST), BROKE 2ND & 3RD TOES OF LEFT FOOT (BOOT), AND CONTUSION OF LEFT EYE. HX: uterine prolapse History of Any Multi-Drug Resistant Organisms: None Reported Past Surgical History: Hernia Repair, Hysterectomy, Orthopedic Surgery Additional Past Surgical History / Comment(s): VAGINAL HYSTERECTOMY WITH A & P REPAIR (10/23/15). BILATERAL CATARACTS WITH IMPLANTS. Heel spur. Breast bx,breast reduction. Lt inguinal hernia Past Anesthesia/Blood Transfusion Reactions: No Reported Reaction Additional Past Anesthesia/Blood Transfusion Reaction / Comment(s): unknown family hx Past Psychological History: No Psychological Hx Reported Past Alcohol Use History: Occasional Past Drug Use History: None Reported - Past Family History Mother Family Medical History: Cancer Additional Family Medical History / Comment(s): lung Father Family Medical History: Myocardial Infarction ([place]) <Raymon Pennington - Last Filed: 06/30/22 14:12> General Exam Limitations: physical limitation (Ambulates with cane) General appearance: alert, in no apparent distress Respiratory exam: Present: normal lung sounds bilaterally. Absent: respiratory distress, wheezes, rales, rhonchi, stridor Cardiovascular Exam: Present: regular rate, normal rhythm, normal heart sounds. Absent: systolic murmur, diastolic murmur, rubs, gallop, clicks GI/Abdominal exam: Present: soft, normal bowel sounds. Absent: distended, tenderness, guarding, rebound, rigid Left Upper Leg exam: Present: normal inspection (Small scabbed area distal aspect of the thigh possibly from a bug bite.), full ROM. Absent: tenderness, swelling Knee exam: Present: full ROM, tenderness, swelling (Mild tenderness and swelling along the medial aspect left knee, appears to originate suprapatellar), erythema (Mildly erythematous area in the popliteal space) Lower Leg exam: Present: normal inspection, full ROM. Absent: tenderness, swelling, erythema, Homans' sign Foot/Toe exam: Present: normal inspection, full ROM. Absent: tenderness, swelling Neurovascular tendon exam: Present: no vascular compromise Neurological exam: Present: alert, oriented X3 Psychiatric exam: Present: normal affect, normal mood <Pippa Alvarez - Last Filed: 07/04/22 18:43> Course Vital Signs 06/30/22 06/30/22 14:17 19:16 Temperature 98 F 97.5 F L Pulse Rate 77 72 Respiratory 18 16 Rate Blood Pressure 193/83 178/87 O2 Sat by Pulse 95 96 Oximetry Medical Decision Making <Pippa Alvarez - Last Filed: 07/04/22 18:43> - Medical Decision Making 77-year-old female presents to the emergency department for evaluation of left knee pain and concerns of DVT. There is mild swelling noted to the medial surface of the left knee and a small erythematous area consistent with skin irritation in the popliteal space. Ultrasound of the left lower extremity was negative for DVT. Antibiotic ointment applied to erythematous area on skin. She will be discharged home with instructions on symptomatic management of left knee pain. Return parameters discussed in detail. Patient and spouse verbalized understanding and agreed with this plan. Attending: Rinku Was pt. sent in by a medical professional or institution? @ -No Did you speak to anyone other than the patient for history? @ -No Did you review nursing and triage notes? @ -Yes, agree Were old charts reviewed? @ -No Differential Diagnosis? @ -DVT of the left lower extremity, left knee injury, soft tissue swelling, this is not meant to be an exhaustive list EKG interpreted by me (3pts min.)? @ -Not applicable X-rays interpreted by me (1pt min.)? @ -Not applicable CT interpreted by me (1pt min.)? @ -Not applicable U/S interpreted by me (1pt. min.)? @ -Ultrasound interpreted by radiologist What testing was considered but not performed? (CT, X-rays, U/S, labs)? Why? @ -X-ray of the left knee was considered, but there was no trauma or injury reported. What meds were considered but not given? Why? @ -Antibiotic considered for erythematous area in the popliteal space of the left knee, however it appears localized to the skin and more consistent with irritation than infectious process. Did you discuss the management of the patient with other professionals? @ -None Did you reconcile home meds? @ -No Was smoking cessation discussed for >3mins.? @ -No Was critical care preformed (if so, how long)? @ -No Were there social determinants of health that impacted care today? How? (Homelessness, low income, unemployed, alcoholism, drug addiction, transportation, low edu. Level, literacy, decrease access to med. care, senior living, rehab)? @ -No Was there de-escalation of care discussed even if they declined? (Discuss DNR or withdrawal of care, Hospice)? @ -No What co-morbidities impacted this encounter? (DM, HTN, Smoking, COPD, CAD, Cancer, CVA, Hep., AIDS, mental health diagnosis, sleep apnea, morbid obesity)? @ -None Was patient admitted / discharged? @ -Discharged Undiagnosed new problem with uncertain prognosis? @ -None Drug Therapy requiring intensive monitoring for toxicity (Heparin, Nitro, Insulin, Cardizem)? @ -None Were any procedures done? @ -None Diagnosis/symptom? @ -Left knee pain Acute, or Chronic, or Acute on Chronic? @ -Acute Uncomplicated (without systemic symptoms) or Complicated (systemic symptoms)? @ -Uncomplicated Side effects of treatment? @ -None Exacerbation, Progression, or Severe Exacerbation] @ -No Poses a threat to life or bodily function? @ -No (Pippa Alvarez) Disposition <Raymon Pennington - Last Filed: 06/30/22 14:12> Is patient prescribed a controlled substance at d/c from ED?: No Time of Disposition: 18:54 <Pippa Alvarez - Last Filed: 07/04/22 18:43> Clinical Impression: Left knee pain Disposition: HOME SELF-CARE Condition: Stable Instructions (If sedation given, give patient instructions): Knee Pain (ED) Additional Instructions: There was no evidence of blood clot/DVT on your ultrasound. Apply antibiotic ointment to redness behind the knee daily for 3 days. Keep extremity elevated while at rest. Maintain mobility with frequent ambulation. Follow-up with your PCP for a recheck in 48 hours. Return to the emergency department with any new, worsening, or concerning symptoms. Referrals: Armando Rivers DO [Primary Care Provider] - 1-2 days
--- NOTE | 2022-06-30 15:17 | US ---
EXAMINATION TYPE: US venous doppler duplex LE LT DATE OF EXAM: 06/30/2022 3:01 PM COMPARISON: NONE CLINICAL HISTORY: 77-year-old female pain, swelling. Left leg swelling better today then yesterday, n o h/o DVT SIDE PERFORMED: Left TECHNIQUE: The lower extremity deep venous system is examined utilizing real time linear array sonog eric with graded compression, doppler sonography and color-flow sonography. FINDINGS: VESSELS IMAGED: Common Femoral Vein Deep Femoral Vein Greater Saphenous Vein * Femoral Vein Popliteal Vein Small Saphenous Vein * Proximal Calf Veins Posterior tibial veins (* superficial vessels) Left Leg: Negative for DVT IMPRESSION: No evidence for DVT within the left lower extremity.
[2022-06-30] MEDS ORDERED: BACITRACIN OINT 1 EACH PACKET TOPICAL ONE (18:52)
[2022-06-30 19:19] VITALS: BP 178/87; PULSE 72; RESP 16; TEMP 97.5
== END 2022-06-30 19:16 | disposition home or self-care (01) ==
LOC: EC 13:56
DX: M79.605 Pain in left leg (principal); I10 Essential (primary) hypertension; Z79.82 Long term (current) use of aspirin
CPT/HCPCS: 99283

== ENCOUNTER → 2022-11-27 | Outpatient (CLI) | payer MEDICARE ==
--- NOTE | 2022-11-27 22:30 | BD ---
EXAMINATION TYPE: Axial Bone Density DATE OF EXAM: 11/27/2022 CLINICAL HISTORY: 77 years old Female. ICD-10 CODE: Z78.0 Post menopausal Height: 62.5 Weight: 160 FRAX RISK QUESTIONS: Family History (Parent hip fracture): no History of Fracture in Adulthood: yes lt wrist Secondary Osteoporosis: no Current Tobacco Use: yes RISK FACTORS HISTORY OF: History of Wrist Fracture: yes lt When: 2017 Surgery to Wrist (left): yes When: 2017 Family History of Osteoporosis: no Active: yes Diet low in dairy products/other sources of calcium: no Postmenopausal woman: yes Lost more than 2 inches in height since high school: YES 3.5 INCHES Frequent falls: no Poor Health: no MEDICATIONS: Additional Medications: yes cholesterol, urinary meds, calcium Additional History: no EXAM MEASUREMENTS: Bone mineral densitometry was performed using the [employer] System. Bone mineral density as measured about the Lumbar spine is: ----- L1-L4(G/cm2): 1.181 T Score Values are as follows: ----- L1: 0.2 ----- L2: -0.2 ----- L3: -0.4 ----- L4: 0.3 ----- L1-L4: 0.0 Z Score Values are as follows: ----- L1: 1.8 ----- L2: 1.3 ----- L3: 1.1 ----- L4: 1.8 ----- L1-L4: 1.5 Bone mineral density baseline Bone mineral density about the R hip (g/cm2): 0.931 Bone mineral density about the L hip (g/cm2): 0.955 T Score values are as follows: -----R Neck: -1.3 -----L Neck: -1.5 -----R Total: -0.6 -----L Total: -0.4 Z Score values are as follows: -----R Neck: 0.5 -----L Neck: 0.3 -----R Total: 1.0 -----L Total: 1.2 Bone mineral density baseline FRAX%s: The graph provided illustrates a 18.6% chance for a major osteoporotic fx and a 5.8 % chance for the hips probability for fx in 10 years time. IMPRESSION: Osteopenia (T Score between -2.5 and -1). There is slightly increased risk of fracture and the patient may be considered for treatment. Re-Screen 2-5 years. NOTE: T-SCORE=SD OF THE YOUNG ADULT MEAN.
--- NOTE | 2022-11-28 08:30 | MM ---
Reason for Exam: Screening (asymptomatic). Last mammogram was performed 4 year(s) and 4 month(s) ago. Patient History: Menarche at age 17. First Full-Term at age 19. Left ovary removed at age 71. Right ovary removed at age 71. Hysterectomy at age 71. Postmenopausal. Estrogen, starting at age 53 for 10 years. 2000, Bilateral Reduction. Sister had breast cancer, age 75. Risk Values: Natividad 5 year model risk: 3.0%. NCI Lifetime model risk: 6.0%. Prior Study Comparison: 09/18/2008 Bilateral Diagnostic Mammogram, [facility]. 06/02/2015 Bilateral Screening Mammogram, [facility]. 07/30/2018 Bilateral Screening Mammogram, [facility]. Tissue Density: The breast tissue is heterogeneously dense. This may lower the sensitivity of mammography. Findings: Analyzed By CAD. There is no suspicious group of microcalcifications or new suspicious mass in either breast. Overall Assessment: Benign, BI-RAD 2 Management: Screening Mammogram of both breasts in 1 year. . Patient should continue monthly self-breast exams. A clinical breast exam by your physician is recommended on an annual basis. This exam should not preclude additional follow-up of suspicious palpable abnormalities. Note on Natividad scores and lifetime risk: 1. A Natividad score greater than 3% is considered moderate risk. If this is the case, consider specialist referral to assess eligibility for a risk reducing agent. 2. If overall lifetime risk for the development of breast cancer is 20% or higher, the patient may qualify for future screening with alternating mammogram and breast MRI. Electronically signed and approved by: Skip Rae M.D. Radiologis
== END | disposition home or self-care (01) ==
LOC: RADMAMWWP 15:17
PROVIDERS: ATTEND Family Medicine
DX: Z12.31 Encounter for screening mammogram for malignant neoplasm of breast (principal); M85.89 Other specified disorders of bone density and structure, multiple sites; Z78.0 Asymptomatic menopausal state
CPT/HCPCS: 77063; 77067; 77080